=== PATIENT | female | born 1965 | race Native Hawaiian/Other Pacific Islander ===

== ENCOUNTER → 2024-06-11 | Outpatient (CLI) | payer OTHER ==
[2024-06-11 15:31] VITALS: BP 144/82; PULSE 74; RESP 16; TEMP 98.4
--- NOTE | 2024-06-11 16:04 | P.SLEEP ---
History of Present Illness DATE: 06/11/2024 CONSULTATION/NEW PATIENT EVALUATION HISTORY OF PRESENT ILLNESS/SLEEP-WAKE EVALUATION: 58-year-old lady had been evaluated in the sleep center for possible obstructive sleep apnea hypopnea syndrome. SLEEP SCHEDULE: Usually sleep schedule from 910 PM until 6 AM 7 days a week. FALLING ASLEEP: No problems with falling asleep, although patient has TV set in bedroom. DURING SLEEP: Patient sleeps on the back position with mild snoring and awakenings from sleep 3 times with 2 episodes of nocturia. Positive history of grinding teeth and sweating no history of hypnogogical hallucinations, sleep paralysis, or cataplexy. DURING THE DAY/WAKE STATE: In the morning patient wake up tired, has problems with memory. [place] sleepiness scale is 1. Patient does not take naps. PAST MEDICAL HISTORY: Hypertension, carpal tunnel syndrome. PAST SURGICAL HISTORY: Status post surgery for carpal tunnel syndrome on the right side, status post right knee surgery for meniscus problems, status post partial hysterectomy. MEDICATIONS: Please see below. SOCIAL HISTORY: Please see below. FAMILY HISTORY: Please see below. REVIEW OF SYSTEMS: Snoring, multiple awakenings from sleep. No fevers. No double vision. No recent chest pain. No shortness of breath. No abdominal pain. No bleeding episodes. No blood in urine. No seizure episodes. PHYSICAL EXAMINATION: GENERAL: A pleasant patient without any distress. VITAL SIGNS: Please see below, weight 133 pounds, BMI 23.5. HEENT: PERRLA, EOMI. Evaluation of oropharynx showed tongue protrudes midline, low position of soft palate Mallampati 4, retrognathia 1 to 2 mm. NECK: Supple. No JVD. Thyroid is not palpable. 12.5 inches in circumference. LUNGS: Clear to percussion and to auscultation. Good air exchange. No wheezing or rhonchi. HEART: S1, S2 regular. No murmurs, gallops or rubs. ABDOMEN: Soft and nontender. Bowel sounds are present. No organomegaly appreciated. EXTREMITIES: No clubbing or cyanosis. SCHOOL ADMINISTRATOR: Awake, alert, and oriented x3. Cranial nerves 2 to 7 intact. There is no fasciculation or atrophy noted. No focal deficits observed. ASSESSMENT: 1. Snoring, multiple awakenings from sleep, extremely low position of soft palate Mallampati 4, retrognathia up to 2 mm. Possible obstructive sleep apnea hypopnea syndrome. 2. Hypertension. 3. Carpal tunnel syndrome, status post surgical treatment on the right side. 4. Status post right knee surgery. 5 status post partial hysterectomy. PLAN: 1. Polysomnography for evaluation of patient's breathing during sleep. 2. Following plan after reading sleep study. 3. Preferable position during sleep on the side. 4. No driving if patient feels any sleepiness. Patient is aware of civil and criminal liability for unsafe driving. 5. Sleep hygiene with regular sleep time for at least 7.5-8 hours. Thank you very much for referring this patient for consultation. Sincerely, Donovan Ivy MD, PhD, FAASM. Diplomat of [employer], Sleep Medicine Board by [employer] [place] [facility] [place] cc: Nolan Cook MD Past Medical History Past Medical History: Hypertension Additional Past Medical History / Comment(s): joint pain History of Any Multi-Drug Resistant Organisms: None Reported Past Surgical History: Hysterectomy, Orthopedic Surgery Past Anesthesia/Blood Transfusion Reactions: No Reported Reaction Past Psychological History: No Psychological Hx Reported Smoking Status: Never smoker Past Alcohol Use History: Occasional Past Drug Use History: None Reported - Past Family History Mother Family Medical History: CVA/TIA, Hyperlipidemia, Hypertension, Sleep Apnea/CPAP/BIPAP, Thyroid Disorder Medications and Allergies Home Medications Medication Instructions Recorded Confirmed Type Meloxicam, Submicronized 10 mg PO DAILY 06/11/24 06/11/24 History [Meloxicam] Progesterone, Micronized 200 mg PO DAILY 06/11/24 06/11/24 History [Progesterone] amLODIPine [Norvasc] 10 mg PO DAILY 06/11/24 06/11/24 History Physical Exam Vitals: Vital Signs Temp Pulse Resp BP Pulse Ox 06/11/24 15:29 98.4 F 74 16 144/82 98 Intake and Output 06/11/24 06/11/24 06/11/24 06:59 14:59 22:59 Other: Weight 60.328 kg Sleep Note - Sleep Data ESS Total: 1 - Sleep Note Sleep Note: Temperature: 98.4 F Pulse Rate: 74 Respiratory Rate: 16 Blood Pressure: 144/82 SpO2: 98 Height: 5 ft 3 in Weight: 60.328 kg BMI: Neck Circumference: 12.5
== END ==
LOC: 3 N SLEEP 14:42
PROVIDERS: ATTEND Internal Medicine
DX: R06.83 Snoring (principal); M26.19 Other specified anomalies of jaw-cranial base relationship; I10 Essential (primary) hypertension; G56.00 Carpal tunnel syndrome, unspecified upper limb; Z98.890 Other specified postprocedural states; Z90.711 Acquired absence of uterus with remaining cervical stump; Z79.899 Other long term (current) drug therapy
CPT/HCPCS: 99202

== ENCOUNTER 2024-07-26 19:48 | Outpatient (CLI) | payer OTHER ==
--- NOTE | 2024-07-29 12:34 | P.PCN ---
Description of Procedure: POLYSOMNOGRAPHY REPORT PROCEDURE(S)/DATE(S): Polysomnography 07/26/2024 CLINICAL: Patient has been seen in the sleep center for evaluation of obstructive sleep apnea-hypopnea syndrome. Please see my consultation. Sleep study has been done for evaluation of patient breathing during the sleep. PROCEDURE: The standard montage for clinical polysomnography included the electroencephalogram, the electrooculogram, the mentalis surface electromyography and Lead II cardiography. The respiratory battery consisted of measurements of nasal/buccal air flow, pressure transducer measurements from nose, thoracic and/or abdominal effort and intercostal surface electromyography. Video monitoring has been done to check for any parasomnia events. Nocturnal oxyhemoglobin saturations were obtained by finger oximetry. Step-pittman titration with positive airway pressure was utilized to control the respiratory events, if necessary. RESULTS: During the diagnostic sleep study sleep efficiency was slightly decreased to 85.6%. Latency to sleep onset was normal 11.5 min. Sleep architecture showed stage NI was significantly increased to 21.9%, Delta sleep was absent 0%, REM sleep was decreased to 10.6%. Respiratory channel showed 0 obstructive apneas, 0 mixed apneas, 0 central apneas, 0 hypopneas with lowest oxygen level 90%. Total apnea hypopnea index was 0. Heart rate was in the range between 68 and 76, average 71. EMG showed 8.4 periodic limb movements per hour with 0.3 micro-arousals per hour. IMPRESSIONS: 1. No significant respiratory abnormalities have been documented during the sleep study, normal oxygenation during sleep. 2. Very minimal periodic limb movements have been documented 8.4 times per hour, which is in normal range by today's criteria, although periodic limb movements have been documented on the second part of the night for a period of time about 1 hour and for that hour index of periodic limb movements was high. 3. Loud snoring have been documented Please see other impressions from consultation PLAN: 1. I will see patient for follow-up visit to explain results of the test and recommendations. 2. Sleep hygiene with regular time in bed for at least 7-1/2 hours. 3. Please check iron profile including ferritin level. Low level of iron may increase the risk for periodic limb movements. 4. No driving if feeling sleepiness. 5. Preferable position during the sleep on the side. Patient may have evaluation by ear nose and throat physician for treatment of snoring. Thank you very much for allowing me to participate in the management of your patient. Sincerely, Donovan Ivy MD, PhD, FAASM. Diplomat of [place] [employer], Sleep Medicine Board by [place] [employer] [facility] [place] [facility] cc: Nolan Cook MD
== END 2024-07-27 05:30 | disposition home or self-care (01) ==
LOC: 3 N SLEEP 19:48
PROVIDERS: ATTEND Internal Medicine
DX: G47.33 Obstructive sleep apnea (adult) (pediatric) (principal); G47.61 Periodic limb movement disorder; R06.83 Snoring
CPT/HCPCS: 95810